=== PATIENT | male | born 1960 | race Caucasian/White ===

== ENCOUNTER → 2017-08-20 | Outpatient (CLI) | payer OTHER ==
[~2017-08-20] MED LIST: ACETAMINOPHEN-1 EAC2 PO; ALEVE220 MG PO; AMBIEN 10 MG TA10 MG PO; AMBIEN 5 MG TABL5 M1 PO; AMITIZA 24 MCG24 MC1 PO; CREAM; DAZIDOX10 MG PO; DESIPRAMINE 2525 M1 PO; EPCLUSA 400 MG1 EACH PO; LIORESAL 10 MG10 MG PO; METAMUCIL PAC1 UDPK1 PO; METAMUCIL197.2 GM PO; METHADONE HCL 110 MG PO; METHOCARBAMOL500 M1 PO; MIRALAX17 GM PO; MOVANTIK25 MG PO; NEURONTIN 300M300 M2 PO; OPANA ER20 M1 PO; OPANA ER30 M1 PO; OXYCODONE HCL 55 MG PO; OXYCODONE HCL10 MG PO; OXYCODONE HCL5 M1 PO; OXYCODONE PO; OXYCONTIN CR 2020 MG PO; OXYCONTIN10 M1 PO; OXYCONTIN40 MG PO; PAMELOR25 MG PO; PERCOCET 10-321 EACH PO; ROXICODONE5 MG PO; SENOKOT-S1 TA1 PO; TYLENOL325 MG PO
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
== END ==
LOC: M.PC 03:37
DX: M54.12 Radiculopathy, cervical region (principal); G62.9 Polyneuropathy, unspecified; G89.29 Other chronic pain

== ENCOUNTER → 2017-10-15 | Outpatient (CLI) | payer OTHER ==
--- NOTE | 2017-10-27 08:16 | PAINCON ---
[facility] [address] [place] [address] PAIN MANAGEMENT CONSULTATION Name: MELA POOL Room: [facility] ZENIA Greene#: [id number] Admission: 10/15/17 Attend Phys: Nina Alford MD Discharge: Date of : 56 Report #: [id number] THIS REPORT FOR: //name// CC: Nina Hernandez DATE OF SERVICE: 10/15/2017 FOLLOWUP COMPLAINT: Here for medications. Things are going reasonably well. I has had some worsening pain, because of machines have broke-down at work and I had to work on them. FOLLOWUP HISTORY: The patient is a 57-year-old gentleman, who has been followed in the pain clinic. As you recall, he suffers from cervical radiculopathy. He has had anterior cervical fusion in the past. He continues to stay gainfully employed. Finds his medications are quite helpful. Does not take the methocarbamol as often as 3 times a day. He does take it periodically. Notes that it sometimes makes him a little bit sleepy. Feels that the oxycodone is very helpful. Continues to take it as prescribed. He has had no complications from it. No problem with his GI tract. No problems with mentation. Keeps his medications in a guarded area. He feels that he is getting greater than 50% improvement with use of these medications. Rates his pain as a 4.5/10 today. He has been reviewed for hepatitis C treatment. He is being interviewed with the possibility of using ____ need to help with the hepatitis C infection. Overall, there seems to be a number of other agents. He is being informed on what his options are. He continues to have pain in the neck. 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 When the machine breaks down, he is required to do quite a bit of contortion of his neck in order to fix these. Given that now has someone to help him. He feels that his pain level should be stabilized or improved. ALLERGIES: No known drug allergies. CURRENT MEDICATIONS: Continued to be Tylenol 325 q. 6 hours p.r.n., methocarbamol 500 mg p.o. p.r.n., MiraLax 17 grams at bedtime, Ambien 5 mg at bedtime, oxycodone IR 10 mg q. 6 hours p.r.n. pain. SOCIAL HISTORY: The patient denies use of tobacco, alcohol or illicit drugs. PAIN ASSESSMENT REVIEW: 1. The patient is not being treated for osteoarthritis or rheumatoid arthritis. Height 5 feet 9 inches, weight 166 pounds, BMI is 24. 2. VITAL SIGNS: Blood pressure 144/77, pulse 72, respiratory rate 16, [place] [address] PAIN MANAGEMENT CONSULTATION Name: MELA POOL [id number] Admission: 10/15/17 Attend Phys: Nina Alford MD Discharge: Date of : 56 Report #: [id number] saturation 99%, temperature 97.9. Pain intensity 4.5/10. 3. Fall risk. The patient has not fallen in the last 3 months. 4. Blood thinner. The patient is not on a blood thinner. 5. History of hypertension. The patient is not being treated for hypertension. 6. Opioid therapy greater than 6 weeks. The patient is on an opioid contract with the pain clinic and receives his medications only from this source. 7. Risk assessment tool. 8. Functional assessment total. 9. Recreational drug use. The patient denies recreational drug use. 10. Tobacco: The patient denies use of tobacco. 11. Alcohol: The patient denies use of alcoholic beverages. PHYSICAL EXAMINATION: GENERAL: The patient is a well-developed, pleasant 57-year-old gentleman. Appears his stated age. Speech is normal. He is alert and oriented x 3. Mood and affect are appropriate. HEENT: Head is atraumatic, normocephalic without trauma. Extraocular eye muscles intact. Sclerae normal. Hearing within normal limits. Mucous membranes moist. NECK: Without adenopathy, well-healed scar in the neck area. Some limited range of motion secondary to previous surgery. CHEST: Clear to auscultation without rhonchi or wheezing. ABDOMEN: Nontender. EXTREMITIES: Upper extremities within normal limits with some numbness and tingling in his hands and forearms bilaterally. 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 Lower extremity, muscle strength judged to be 5/5, muscle group within normal limits without complain of neurologic changes. MUSCULOSKELETAL: Without significant kyphosis, scoliosis or lordosis. IMPRESSION: 1. History of cervical radiculopathy. 2. Failed cervical spine surgery. 3. Peripheral neuropathy. 4. Chronic intractable pain. 5. Complex medical regimen for neck and shoulder pain. RECOMMENDATIONS: We discussed treatment options with the patient. We will continue with his current opioid medications. He feels that his medications are helpful. He has not had any problems with them. He is getting more help at work. Hopefully, when the machines breakdown, his coworker will be able to do a ____ and share the work and decrease his pain and stress on his neck. He will continue with his current medications. He will call us if he has any problems with his medications. We would like to thank you for letting us participate in his care. A script for his medications of OxyIR 10 mg 1 p.o. q. 4 [place] [address] PAIN MANAGEMENT CONSULTATION Name: MELA POOL Room: [facility]#: [id number] Admission: 10/15/17 Attend Phys: Nina Alford MD Discharge: Date of : 56 Report #: [id number] has been written for 2 months. He also will take the methocarbamol p.r.n. for muscle spasms. <ELECTRONICALLY SIGNED> By: Nina Alford MD 10/27/17 0816 [id number] 2027N. Bishnu Alford MD /nt
== END ==
LOC: M.PC 01:26
DX: G89.4 Chronic pain syndrome (principal); G62.9 Polyneuropathy, unspecified; M54.12 Radiculopathy, cervical region

== ENCOUNTER → 2017-12-10 | Outpatient (CLI) | payer OTHER ==
--- NOTE | 2017-12-16 14:14 | PAINCON ---
[facility] [address] [place] [address] PAIN MANAGEMENT CONSULTATION Name: MELA POOL Room: [facility] ZENIA SealsDeidre#: [id number] Admission: 12/10/17 Attend Phys: Nina Alford MD Discharge: Date of : 56 Report #: [id number] THIS REPORT FOR: //name// CC: Nina Hernandez DATE OF SERVICE: 12/10/2017 FOLLOWUP COMPLAINT: Here for medications. I have been talked to my doctor about hepatitis medication. FOLLOWUP HISTORY: The patient is a 57-year-old gentleman who has been followed in the pain clinic for quite some time. He has pain and discomfort in his neck. Most of the pain and discomfort he is experiencing at this juncture involves his left neck in the area of scapula. He has had surgery as you recall. Finds that his medications are helpful. Feels that the oxycodone continues to be helpful. He remains gainfully employed. Has had no complication from the medication. Does not feel that the medication cause any problems with his sensorium. He is thinking clearly. Keeps his medications in a guarded area. Denies any bowel problems with his bowel or bladder function. The patient rates his pain as about a 4 most of the time. He is aware that he probably will continue to have some pain. Finds that the medication is reasonably helpful. He is aware that opioid medications can cause addiction. He is also aware that prolonged use of medications can lead to decrease efficacy because of tolerance. He would like to have his medications renewed. ALLERGIES: No known drug allergies. CURRENT MEDICATIONS: Tylenol 325 every 6 hours p.r.n., methocarbamol 500 mg t.i.d., MiraLax 17 grams, Ambien 5 mg at bedtime, oxycodone 10 every 4 hours p.r.n. pain. PAIN CLINIC ASSESSMENT: 1. The patient is not being treated for osteoarthritis, but does have some arthritic changes in his neck. 2. Height 5 feet 9 inches, weight 167 pounds, BMI is 24. 3. Vital signs: Blood pressure 151/78, heart rate 75, respiratory rate 16, room air saturation 98, temperature 98.2. 4. Pain intensity pain rated as a 4/10. 5. Fall history, the patient has not fallen in the last 2 months. 6. Blood thinner. The patient is not on a blood thinning medication. 7. History of hypertension. The patient is not being treated for hypertension. 8. Opioid therapy greater than 6 weeks. The patient is on an opioid contract and get his medications from 1 source. 9. Risk assessment tool. 10. [place] [address] PAIN MANAGEMENT CONSULTATION Name: MELA POOL [facility] [id number] Admission: 12/10/17 Attend Phys: Nina Alford MD Discharge: Date of : 56 Report #: [id number] 11. Recreational drug use. The patient denies use of recreational drugs. 12. Tobacco: The patient denies use of tobacco. 13. Alcohol: The patient denies use of alcoholic beverages. PHYSICAL EXAMINATION: GENERAL: The patient is a well-developed white male, appears his stated age. He is alert and oriented x 3. Speech is fluent. Mood is appropriate. HEAD, EYES, EARS, NOSE, AND THROAT: Normocephalic, atraumatic. Extraocular eye muscles intact. Sclerae nonicteric. Hearing is within normal limits. Mucous membranes are moist. NECK: Without adenopathy, has a well-healed scar in the anterior portion of his neck. Limited range of motion secondary to the surgery. Notes increased pain in the left shoulder near upper portion of the scapula and in the area of the latissimus dorsi on the left. HEART: Regular rate. S1, S2. LUNGS: Clear to auscultation without rhonchi or wheezing. ABDOMEN: Nontender. EXTREMITIES: Upper extremity muscle strength is judged to be 5/5 for the major muscle groups. Does occasionally note some numbness and tingling in his hands and forearms bilaterally. Lower extremity muscle strength is judged to be 5/5. MUSCULOSKELETAL: Without significant scoliosis, kyphosis or lordosis. IMPRESSION: 1. History of cervical radiculopathy. 2. Failed cervical spine surgery. 3. Peripheral neuropathy. 4. Chronic intractable pain. 5. Complex medical regimen for pain in the neck and shoulder using opioid medications. 6. Hepatitis-C. The patient is being evaluated for treatment. RECOMMENDATIONS: We discussed treatment options with the patient. We will continue with his opioid medications. He has been taking his medication as prescribed. We have had no problems. We will provide him with opioid prescriptions for 3 months. He will call us if he has any problems with his medications. We hope he continues to improve. Hopefully, the work that he does at his job continue to be less taxing on his neck. He will call us if he has any problems. We would like to thank you for letting us to participate in his care. A script for oxycodone 10 one p.o. every 4 hours p.r.n. for 3 months has been provided. The patient has also be given a script for methocarbamol 500 mg p.r.n. He will call us if he has any problems with his medications. Hopefully, he will be able to get into the program and have a treatment for his hepatitis. <ELECTRONICALLY SIGNED> By: Nina Alford MD 12/16/17 1414 0840 0957N. Bishnu Alford MD /PMT
== END ==
LOC: M.PC 02:16
DX: M54.12 Radiculopathy, cervical region (principal); G89.4 Chronic pain syndrome; G62.9 Polyneuropathy, unspecified; B19.20 Unspecified viral hepatitis C without hepatic coma; Z79.899 Other long term (current) drug therapy

== ENCOUNTER → 2018-03-04 | Outpatient (CLI) | payer OTHER ==
--- NOTE | 2018-03-12 17:38 | PAINCON ---
[facility] [address] [place] [address] PAIN MANAGEMENT CONSULTATION Name: MELA POOL Room: [facility] ZENIA SealsDeidre#: [id number] Admission: 03/04/18 Attend Phys: Nina Alford MD Discharge: Date of : 56 Report #: [id number] THIS REPORT FOR: //name// CC: Nina Hernandez DATE OF SERVICE: 03/04/2018 FOLLOWUP COMPLAINT: Here for medication renewal, things are going reasonably well whether it is kind of bad and would made the pain worse. FOLLOWUP HISTORY: The patient is a 57-year-old gentleman who has been followed in the pain clinic because of cervical radiculopathy. As you recall, he has had surgery in his neck. He continues to have some pain and discomfort depends on which side, " depends on which side it falls on." Has pain in the left shoulder today. He does have some occasions when it is more problematic on the right. Feels that the weather has made him feel "lousy." Rates his pain as a 6 today. It can vary between 4-5. Continues to use medications as prescribed. He feels that they are continued to be helpful and able him to be gainfully employed. Denies any side effects regarding bowel or bladder. Denies any problems with mentation. Keeps his medications in a guarded area. He is aware of the problems with opioids and the new CDC policies regarding opioid use. He would like to have his medications continued. ALLERGIES: No known drug allergies. MEDICATIONS: Tylenol 650 mg q. 6 hours p.r.n., methocarbamol 500 mg t.i.d., MiraLax 17 mg, Ambien 5 mg at bedtime, oxycodone 10 mg q.4 hours p.r.n., andEpclusa oral daily PAIN CLINIC ASSESSMENT: 1. The patient is not being treated for osteoarthritis or rheumatoid arthritis, but this have some arthritic change in his neck secondary to surgery. 2. Height 5 feet 9 inches, weight 170 pounds, BMI is 24. 3. Vital signs: Blood pressure 140/80, heart rate 62, respiratory rate 16, room air saturation 97%, temperature 98.2. 4. Pain score 6/10. 5. Fall risk. The patient has not fallen in the last 3 months. 6. Blood thinner. The patient is not on a blood thinning medication. 7. Hypertension. The patient has not been treated for hypertension. 8. Opioid therapy greater than 6 weeks. The patient [facility]. 9. Risk assessment tool. 10. Functional assessment tool. 11. Recreational drug use. The patient denies use of recreational drugs. 12. Tobacco: The [place] [address] PAIN MANAGEMENT CONSULTATION Name: MELA POOL Room: [facility]#: [id number] Admission: 03/04/18 Attend Phys: Nina Alford MD Discharge: Date of : 56 Report #: [id number] 13. Alcohol: The patient denies use of alcohol. PHYSICAL EXAMINATION: GENERAL: The patient is a well-developed, well-nourished white male. Appears his stated age. He is alert and oriented x 3. Affect is appropriate. Speech is fluent. Mood is good. HEENT: Normocephalic, atraumatic. Extraocular eye muscles intact. Sclerae nonicteric. Hearing is within normal limits. Mucous membranes moist. NECK: Without adenopathy. The patient has well-healed scar in the anterior portion of his neck. Has some limitation in movement secondary to surgery. Note some increased pain in the left shoulder today as well as sometimes can be worse on the right. HEART: Regular rate, normal S1, S2. LUNGS: Clear to auscultation without rhonchi or rales. ABDOMEN: Nontender. EXTREMITIES: Upper extremity muscle strength is judged to be 5/5 for the major muscle groups. The patient does have some numbness and tingling down into his hands and forearms bilaterally, left side more problematic today than right lower extremity muscle strength is judged to be 5/5 without sensory changes. The patient does have some significant patient without significant scoliosis, kyphosis or lordosis. IMPRESSION: 1. History of cervical radiculopathy. 2. Failed cervical spine surgery. 3. Peripheral neuropathy. 4. Chronic intractable pain. 5. Complex medical regimen for neck pain, shoulder is using opioid medication. 6. Hepatitis C. The patient is being evaluated for treatment. RECOMMENDATIONS: We discussed treatment options with the patient. We will continue with his current medical regimen. He feels that the medications are helpful. He has had no problems with them. Continues to follow the direction of the pain clinic. The patient will follow up in the near future as needed. A script for his medications of oxycodone for the next 3 months has been provided. The patient will also continue with, methocarbamol 500 mg. We would like to thank you for letting us participate in his care. We hope he continues to improve. <ELECTRONICALLY SIGNED> By: Nina Alford MD 03/12/18 1738 0841 1051N. Bishnu Alford MD /felecia
== END ==
LOC: M.PC 04:54
DX: M54.12 Radiculopathy, cervical region (principal); G89.4 Chronic pain syndrome; G62.9 Polyneuropathy, unspecified; B19.20 Unspecified viral hepatitis C without hepatic coma; Z79.899 Other long term (current) drug therapy

== ENCOUNTER → 2018-05-25 | Outpatient (CLI) | payer OTHER ==
--- NOTE | ~2018-05-25 | PAINCON ---
[facility] [address] [place] [address] PAIN MANAGEMENT CONSULTATION Name: MELA POOL Room: [facility] BozenaDeidre#: [id number] Admission: 05/25/18 Attend Phys: Nina Alford MD Discharge: Date of : 56 Report #: [id number] THIS REPORT FOR: //name// CC: Nina Hernandez DATE OF SERVICE: 05/25/2018 CHIEF COMPLAINT: Here for medications. HISTORY: The patient is a 57-year-old gentleman who has been followed in the pain clinic because of cervical radiculopathy. He returns today for renewal of his medications. He rates his pain as a 5/10. The weather has changed. It is about 24 degrees outside this morning. Notes that the pain has increased somewhat. It involves his left shoulder and also his right side. Overall, he is feeling reasonably well. Denies any new trauma. Feels that his medications are helpful. Today is right before Thanksgiving, he has a lot of activities that he needs to get done. The stress of this makes the pain more problematic. Denies any problems with mentation with use of his medications. Keeps them in a guarded area. Would like to have them renewed. ALLERGIES: No known drug allergies. CURRENT MEDICATIONS: Tylenol 600 mg q. 6 hours p.r.n., methocarbamol 500 mg t.i.d., MiraLax 17 mg, Ambien 5 mg at bedtime, oxycodone 10 mg q. 4 hours p.r.n., and Epclusa oral daily. PAIN CLINIC ASSESSMENT AND PQRS: 1. The patient is not being treated for osteoarthritis or rheumatoid arthritis. The patient does have some arthritic changes secondary to surgery in his neck. 2. Height 5 feet 9 inches, weight 165 pounds, BMI is 24.5. 3. Vital signs; blood pressure 143/87, heart rate 89, respiratory rate 16, room air saturation 98%, and temperature 98.4. 4. Pain intensity 11/12. 5. Fall history: The patient has not fallen since we saw him last. 6. Blood thinner. The patient is not on a blood thinning medication. 7. Hypertension. The patient is not being treated for hypertension. 8. Opioid therapy greater than 6 weeks. The patient has received medication from [facility], the pain clinic. 9. Risk assessment tool, low for opioid use. 10. Functional assessment tool. 11. Recreational drug use. The patient denies use of recreational drugs. 12. Tobacco: The patient denies use of tobacco. 13. Alcohol: The patient denies use of alcoholic beverages. PHYSICAL EXAMINATION: [place] [address] PAIN MANAGEMENT CONSULTATION Name: MELA POOL Room: [facility]#: [id number] Admission: 05/25/18 Attend Phys: Nina Alford MD Discharge: Date of : 56 Report #: [id number] GENERAL: The patient is a well-developed, well-nourished white male. He appears his stated age. He is alert and oriented x 3. His affect is appropriate. Speech is fluent. Mood is good. HEENT: Normocephalic. Extraocular eye muscles intact. Sclerae nonicteric. Hearing is within normal limits. Mucous membranes are moist. NECK: Without adenopathy. The patient has a well-healed scar at the anterior portion of his neck. Has some irritation ____ secondary to surgery. HEART: Regular rate. S1, S2. LUNGS: Clear to auscultation without rhonchi or rales. ABDOMEN: Nontender. Bowel sounds present. EXTREMITIES: Upper extremity muscle strength is judged to be 5/5 for the major muscle groups. The patient has some numbness and tingling down into his hand and forearm. Left side in the past has been more problematic than right. Lower extremity 5/5 without sensory changes. The patient without scoliosis, kyphosis, or lordosis. IMPRESSION: 1. History of cervical radiculopathy, status post cervical fusion. 2. Failed cervical spine surgery. 3. Peripheral neuropathy. 4. Chronic intractable pain. 5. Chronic medical regimen for neck pain and shoulders. 6. Hepatitis C. The patient is being evaluated for treatment. RECOMMENDATIONS: We discussed treatment options with the patient. At this juncture, he will continue with his current medication of oxycodone 10 mg one p.o. q. 4 hours p.r.n., ____ tablets per day. He will also continue with methocarbamol 500 mg 1 p.o. t.i.d. to help with pain control and spasms. We would like to thank you for letting us participate in his care. We hope he continues to improve. By: [id number]. Bishnu Alford MD /felecia
== END ==
LOC: M.PC 04:49
DX: M54.12 Radiculopathy, cervical region (principal); M43.22 Fusion of spine, cervical region; G62.9 Polyneuropathy, unspecified; G89.4 Chronic pain syndrome; B19.20 Unspecified viral hepatitis C without hepatic coma

== ENCOUNTER → 2018-08-17 | Outpatient (CLI) | payer OTHER ==
--- NOTE | 2018-08-20 13:53 | PAINCON ---
[facility] [address] [place] [address] PAIN MANAGEMENT CONSULTATION Name: MELA POOL Room: [facility] BozenaDeidre#: [id number] Admission: 08/17/18 Attend Phys: Nina Alford MD Discharge: Date of : 56 Report #: [id number] THIS REPORT FOR: //name// CC: Nina Hernandez DATE OF SERVICE: 08/17/2018 CHIEF COMPLAINT: Here for medications. HISTORY: The patient is a 58-year-old gentleman who has been followed in the pain clinic because of chronic cervical radiculopathy. He returns today for his medications. He notes that the pain has increased because of the cold weather. He feels that his job has been more problematic. 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 He has been seen by a chiropractor. His chiropractor has been out of town. When he gets more pain and is unable to visit a chiropractor, he notes some increased pain and discomfort. He is still having pain at the base of his neck. Also, has pain in the left scapular area. Rates his pain as a 4/10. ALLERGIES: No known drug allergies. MEDICATIONS: Tylenol 600 mg every 6 hours, methocarbamol 500 mg t.i.d., MiraLax 17 g, Ambien 5 mg at bedtime, oxycodone 10 mg every 4-6 hours, Epclusa oral daily. PAIN CLINIC ASSESSMENT/PQRS: 1. The patient is not being treated for osteoarthritis or rheumatoid arthritis. Does have some arthritic changes secondary to surgery in his neck. 2. Height 5 feet 9 inches, weight 164 pounds, BMI is 24.4. 3. Vital signs: Blood pressure 133/97, heart rate 81, respiratory rate 16, room air saturation 98%, temperature 98.3. 4. Pain intensity 5/10. 5. Fall history: The patient has not fallen in the last 3 months. 6. Blood thinner. The patient is not on a blood thinning medication. 7. Hypertension. The patient is not being treated for hypertension. 8. Opioids greater than 6 weeks. The patient is on opioid medication gets his pain medications from one [facility], the pain clinic. 9. Risk assessment tool, low for opioid use. 10. Functional assessment tool. 11. Recreational drug use. The patient denies use of recreational drugs. 12. Tobacco: The patient denies use of tobacco. 13. Alcohol. The patient denies use of alcoholic beverages. PHYSICAL EXAMINATION: [facility] [address] [place] [address] PAIN MANAGEMENT CONSULTATION Name: MELA POOL Room: [facility]#: [id number] Admission: 08/17/18 Attend Phys: Nina Alford MD Discharge: Date of : 56 Report #: [id number] GENERAL: The patient is a well-developed, well-nourished white male. Appears his stated age. He is alert and oriented x 3. His affect is appropriate. Speech is fluent. Mood is good. HEENT: Normocephalic, atraumatic. Extraocular muscles intact. Sclerae nonicteric. Mucous membranes are moist. NECK: Without adenopathy. The patient has some pain and discomfort in the left side and has a well-healed scar on the anterior portion of his neck. Some irritability in his left scapular area. HEART: Regular rate. S1, S2. LUNGS: Clear to auscultation without rhonchi or rales. ABDOMEN: Nontender. Bowel sounds present. EXTREMITIES: Upper extremity muscle straight judged to be 5/5 for the major muscle groups in the upper extremity. Lower extremity muscle strength 5/5. The patient without scoliosis, kyphosis or lordosis. IMPRESSION: 1. History of cervical radiculopathy status post cervical fusion. 2. Failed cervical fusion in the spine area. 3. Peripheral neuropathy. 4. Chronic intractable pain. 5. Chronic medical regimen for pain control. 6. Hepatitis C. He has been evaluated for treatment. RECOMMENDATIONS: We discussed treatment options with the patient. At this juncture, he is at a morphine equivalent of 75 mg morphine. He was wondering whether or not we could increase his medications. We had a long talk regarding the problems with opioid medications. Possibility of addiction as well as tolerance can develop. I explained to the patient that a drug holiday might be the best option at this juncture. He feels that he is under quite a bit of stress and strain at work. He would like to continue with his current medications for now, may consider increasing the medication dose in the near future. We would like to thank you for letting us participate in his care. We hope he continues to improve. <ELECTRONICALLY SIGNED> By: Nina Alford MD 08/20/18 [id number] [id number]. Bishnu Alford MD /nt
== END ==
LOC: M.PC 08:00
DX: M54.12 Radiculopathy, cervical region (principal); M43.22 Fusion of spine, cervical region; G89.4 Chronic pain syndrome; G62.9 Polyneuropathy, unspecified; B19.20 Unspecified viral hepatitis C without hepatic coma; Z79.899 Other long term (current) drug therapy

== ENCOUNTER → 2018-11-09 | Outpatient (CLI) | payer OTHER ==
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
== END ==
LOC: M.PC 04:35
DX: M43.22 Fusion of spine, cervical region (principal); G89.4 Chronic pain syndrome; G62.9 Polyneuropathy, unspecified; B19.20 Unspecified viral hepatitis C without hepatic coma; Z79.899 Other long term (current) drug therapy; Z87.19 Personal history of other diseases of the digestive system

== ENCOUNTER → 2019-02-01 | Outpatient (CLI) | payer OTHER ==
[~2019-02-01] MED LIST changes: +AMITRIPTYLINE H25 M2 PO
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
== END ==
LOC: M.PC 05:02
DX: Z76.0 Encounter for issue of repeat prescription (principal); G62.9 Polyneuropathy, unspecified; G89.4 Chronic pain syndrome; B19.20 Unspecified viral hepatitis C without hepatic coma; Z79.899 Other long term (current) drug therapy; Z79.891 Long term (current) use of opiate analgesic; Z98.1 Arthrodesis status

== ENCOUNTER → 2019-04-26 | Outpatient (CLI) | payer OTHER ==
[~2019-04-26] MED LIST changes: +METHOCARBAMOL500 M2 PO
--- NOTE | 2019-04-27 09:09 | PAINCON ---
[facility] [address] [place] [address] PAIN MANAGEMENT CONSULTATION Name: MELA POOL [facility] [id number] Admission: 04/26/19 Attend Phys: Nina Alford MD Discharge: Date of : 56 Report #: [id number] THIS REPORT FOR: //name// CC: Nina Hernandez DATE OF SERVICE: 04/26/2019 CHIEF COMPLAINT: Neck pain. HISTORY: The patient is a 58-year-old gentleman who has been followed in the Pain Clinic. He has a history of cervical pain and discomfort. He has pain, which involves his neck and shoulders. He has returned today for renewal of his medications. Still has pain and discomfort in the neck and shoulder area. Feels that the amitriptyline medication has been helpful, but 50 mg has made him to somewhat sleepy. He is taking less at this juncture. He has used nortriptyline in the past. We explained to the patient that amitriptyline is metabolized by the body to nortriptyline. He continues to have some pain and discomfort. He goes to the chiropractor every two weeks. Rates his pain as about 50% improved with his current medications of OxyIR 10 mg and methocarbamol. He notes cold weather and activity can increase his discomfort. Finds that medications as well as heat are beneficial. ALLERGIES: No known drug allergies. CURRENT MEDICATIONS: Methocarbamol 500 mg t.i.d., MiraLax 17 g, Ambien 5 mg at bedtime, oxycodone 10 mg q.4h., Epclusa oral daily, Tylenol 600 mg p.r.n. PAIN CLINIC ASSESSMENT AND PQRS: 1. The patient is not being treated for osteoarthritis or rheumatoid arthritis. 2. Height 5 feet 9 inches, weight 159 pounds, BMI is 23. 3. Vital Signs: Blood pressure 150/76, heart rate 73, respiratory rate 16, room air saturation 99%, temperature 98.2. 4. Pain score 3.5/10 5. Fall history: The patient has not fallen in the last 3 months. 6. Blood thinner. The patient is not on a blood thinning medication. 7. Hypertension. The patient is not being treated for hypertension. 8. Opioids: Greater than 6 weeks, the patient received medication from [facility], pain clinic. 9. Risk assessment tool, low for opioid use. 10. Recreational drug use. The patient denied. 11. Functional assessment tool, low. 12. Tobacco: The patient denies use of tobacco. 13. Alcohol: The patient denies [place] [address] PAIN MANAGEMENT CONSULTATION Name: MELA POOL Room: [facility]#: [id number] Admission: 04/26/19 Attend Phys: Nina Alford MD Discharge: Date of : 56 Report #: [id number] PHYSICAL EXAMINATION: GENERAL: The patient is a well-developed, well-nourished white male. Appears his stated age. He is alert and oriented x 3. His affect is appropriate. His speech is fluent. HEENT: Normocephalic, atraumatic. Extraocular eye muscles intact. Sclerae are nonicteric. Mucous membranes are moist. The patient is wearing glasses. NECK: Without adenopathy or JVD. LUNGS: Clear to auscultation without rhonchi. ABDOMEN: Nontender, well-healed scars status post laparoscopic surgeries. EXTREMITIES: Upper extremity muscle strength judged to be 5/5 for the major muscle groups in the upper extremity. The patient has lower extremity muscle strength judged to be 5/5 for the major muscle groups in the lower extremity. The patient is without significant scoliosis, kyphosis or lordosis. IMPRESSION: 1. History of cervical radiculopathy status post cervical fusion. 2. Status post bowel obstruction surgery in the past for lysis of adhesions with improved bowel function. 3. Failed cervical fusion of the spine. 4. Peripheral neuropathy. 5. Chronic intractable pain. 6. Complex medical regimen using opioid medications to help control pain. 7. Hepatitis C. The patient has been evaluated for treatment. RECOMMENDATIONS: We discussed treatment options with the patient. Risks and benefits of an opioid regimen have been discussed, possibility of less effectiveness secondary to development of tolerance. The patient feels the medication is helpful. He is taking it as prescribed. He has some problems with hepatitis. We would recommend that the patient be cognizant of the use of Tylenol given that he is receiving approximately 1800 mg of Tylenol daily. The patient finds that the methocarbamol continues to be helpful with muscle spasms. The patient will take amitriptyline p.r.n. He will take 25 mg at bedtime. Hopefully, this will minimize problems with somnolence. A script for his medications has been written. He will continue with methocarbamol 500 mg 1 p.o. t.i.d., OxyIR 10 mg 1 p.o. q.4h. The patient dispensed 150 tablets per month. He will follow up in 3 months. He will call us sooner if he has any concerns. We would like to thank you for letting us participate in his care. We will continue with his chronic pain control using the complex medical management with opioids. <ELECTRONICALLY SIGNED> By: Nina Alford MD 04/27/19908 0841 8N. Bishnu Alford MD /nt
== END ==
LOC: M.PC 05:23
DX: M54.12 Radiculopathy, cervical region (principal); G89.4 Chronic pain syndrome; G62.9 Polyneuropathy, unspecified; K75.9 Inflammatory liver disease, unspecified; Z79.891 Long term (current) use of opiate analgesic

== ENCOUNTER → 2019-07-19 | Outpatient (CLI) | payer OTHER ==
--- NOTE | ~2019-07-19 | PAINCON ---
[address] [address] PAIN MANAGEMENT CONSULTATION Name: MELA POOL Room: [facility] ZENIA Greene#: [id number] Admission: 07/19/19 Attend Phys: Nina Alford MD Discharge: Date of : 56 Report #: [id number] THIS REPORT FOR: //name// CC: Soraya Alford DATE OF SERVICE: 07/19/2019 CHIEF COMPLAINT: Neck pain continues. It is down in the back of my goal area. HISTORY: The patient is a 59-year-old gentleman who has been followed in the pain clinic. As you recall, he has a history of cervical pain and discomfort. He has had surgery from C3 in the cervical area to T1 the thoracic area. Still has some pain in the base of his skull. Notes some myofascial discomfort as well. Rates his pain today as a 4/10. Denies any new trauma. Overall, he feels that his medications continue to be helpful. He has returned today with the hope of renewing his medications. He has pain that can radiate down into neck area. Feels that the amitriptyline medication is helpful. He feels that he is about 60% improved with his medication use at this point. Takes amitriptyline, mostly on the weekends. 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 ALLERGIES: No known drug allergies. CURRENT MEDICATIONS: Methocarbamol 500 mg t.i.d., MiraLax 17 grams, Ambien 5 mg at bedtime, oxycodone 10 mg every 4-6 hours p.r.n., Epclusa oral daily, Tylenol 600 mg p.r.n. PAIN CLINIC ASSESSMENT/PQRS: 1. The patient is not being treated for osteoarthritis or rheumatoid arthritis. 2. Height 5 feet 9 inches, weight 160 pounds, BMI is 24.4. 3. Vital Signs: Blood pressure 144/88, heart rate 80, respiratory rate 16, room air saturation 98.9%, temperature 98.2. 4. Pain score is 4/10. 5. Fall history: The patient has not fallen in the last 3 months. 6. Blood thinner. The patient is not on a blood thinning medication. 7. Hypertension. The patient is not being treated for hypertension. 8. Opioids greater than 6 weeks. The patient received medication from one source the pain clinic. 9. Risk assessment tool, low for opioid use. 10. Recreational drug use. The patient denies use of recreational drugs. 11. Tobacco: The patient denies use of tobacco. 12. Alcohol. The patient denies use of alcoholic beverages. PHYSICAL EXAMINATION: GENERAL: The patient is a well-developed, well-nour[place] [address] PAIN MANAGEMENT CONSULTATION Name: MELA POOL Master Room: [facility]#: [id number] Admission: 07/19/19 Attend Phys: Nina Alford MD Discharge: Date of : 56 Report #: [id number] his stated age. He is alert and oriented x 3. His affect is appropriate. Speech is fluent. HEAD, EYES, EARS, NOSE, AND THROAT: Normocephalic, atraumatic. Extraocular eye muscles intact. Sclerae nonicteric. Mucous membranes are moist. NECK: Without adenopathy. He does have some pain and discomfort in the base of his skull. Has some pain that radiates down to his shoulders. LUNGS: Clear, without rhonchi. ABDOMEN: Nontender, well-healed scar laparoscopic surgery. EXTREMITIES: Upper extremity muscle strength judged to be 5-/5 for the major muscle groups in the upper extremity. The patient has lower extremity muscle strength judged to be 5/5 for the major muscle groups in the lower extremity. The patient without significant scoliosis, kyphosis or lordosis. IMPRESSION: 1. History of cervical radiculopathy, status post cervical fusion C3 through T1. 2. Status post bowel obstruction surgery in the past with lysis of adhesions. 3. Failed cervical fusion of the spine. 4. Peripheral neuropathy. 5. Chronic intractable pain. 6. Complex medical management of pain using opioid medications. 7. Hepatitis C. The patient has been evaluated for treatment. RECOMMENDATIONS: We discussed treatment options with the patient. Risks and benefits of opioid medications again have been reviewed. The patient is aware that the medications have limited ability to control pain. They can become less effective as time goes on. He feels the medication is helpful. He is able to engage in activities of daily living. He find much more difficult without their use. He does not show any signs addicted. He has taken medication as prescribed. Does find that the amitriptyline medication can be helpful. Generally takes it in the weekend. He would like to continue with his medications. A script for amitriptyline 25 mg 1 p.o. at bedtime has been provided. The patient will also continue with the methocarbamol 500 mg 1 p.o. t.i.d. He will continue with OxyIR 10 mg 1 p.o. every 4 hours total 150 tablets have been provided for the next 2 months. By: [id number]. MD VERONICA Richter
== END ==
LOC: M.PC 07:42
DX: M54.12 Radiculopathy, cervical region (principal); G62.9 Polyneuropathy, unspecified; G89.4 Chronic pain syndrome; M43.22 Fusion of spine, cervical region; B19.20 Unspecified viral hepatitis C without hepatic coma; Z79.891 Long term (current) use of opiate analgesic

== ENCOUNTER → 2019-10-11 | Outpatient (CLI) | payer OTHER ==
[~2019-10-11] MED LIST changes: +AMITRIPTYLINE H75 M1 PO
--- NOTE | 2019-10-12 08:28 | PAINCON ---
[address] [address] PAIN MANAGEMENT CONSULTATION Name: CORINEMELA D Room: [facility] ZENIA SealsCaraEvaristoCara#: [id number] Admission: 10/11/19 Attend Phys: Nina Alford MD Discharge: Date of : 56 Report #: [id number] THIS REPORT FOR: //name// cc: Michael Hernandez Robert J. DO ~ THIS REPORT FOR: //name// CC: Nina Hernandez DATE OF SERVICE: 10/11/2019 CHIEF COMPLAINT: Shoulder pain. HISTORY: The patient is a 59-year-old gentleman who has been followed in the pain clinic because of chronic pain associated with neck discomfort. The patient has had surgery from C3 in the cervical area to T1 in the thoracic area. He does continue to have some pain and discomfort in the skull area. He continues to work. As a result of the COVID-19 problem they have decreased the number of workers. He has had more work to do on his job. He has noted some increased pain as a result of that increased activity. He feels overall that things are going reasonably well. He rates his pain as a 3/10. He feels that his pain is about 50% improved with his current medications. He has returned today with the hopes of renewing his medications. He continues to do stretching exercises. He has been following up with his chiropractor. He is stretching those, but it is out a bit more. He rates his pain as a 3/10 today. ALLERGIES: No known drug allergies. CURRENT MEDICATIONS: Methocarbamol 500 mg t.i.d., MiraLax 17 grams, Ambien 5 mg, oxycodone 10 IR 4-6 hours p.r.n., Epclusa oral daily, Tylenol 600 mg p.r.n. and amitriptyline 25 mg at bedtime, 2 tablets. PAIN CLINIC ASSESSMENT AND PQRS: 1. The patient is not being treated for osteoarthritis or rheumatoid arthritis. 2. Height 5 feet 9 inches, weight 160 pounds, BMI is 23. 3. Vital signs: Blood pressure 145/83, heart rate 68, respiratory rate 16, room air saturation 97%, and temperature 98.4. 4. Pain intensity 3/10. 5. Fall history: The patient has not fallen in the last 3 months. 6. Blood thinner. The patient is not on a blood thinning medication. 7. Hypertension. The patient is not being treated for hypertension. 8. Opioids greater than 6 weeks. The patient received medication from the pain clinic. 9. Risk assessment tool, [place] [address] PAIN MANAGEMENT CONSULTATION Name: MELA POOL Room: [facility]#: [id number] Admission: 10/11/19 Attend Phys: Nina Alford MD Discharge: Date of : 56 Report #: [id number] 10. Functional assessment tool has been reviewed. 11. Recreational drug use: The patient denies. 12. Tobacco: The patient denies. PHYSICAL EXAMINATION: GENERAL: The patient is a well-developed, well-nourished white male. Appears his stated age. He is alert and oriented x 3. His affect is appropriate. Speech is fluent. HEENT: Normocephalic, atraumatic. Extraocular eye muscles intact. MUSCULOSKELETAL: The patient does have some decreased range of motion. He notes some pain that radiates down into his shoulders. ABDOMEN: Nontender, well-healed scar from a laparoscopic procedure. EXTREMITIES: Upper extremity muscle strength judged to be 5-/5 for the major muscle groups in the upper extremity. Lower extremity muscle strength 5/5 for the major muscle groups in the lower extremity. The patient without significant scoliosis, kyphosis or lordosis. IMPRESSION: 1. Cervical radiculopathy, status post fusion C3 through T1. 2. Status post bowel obstruction surgery in the past with lysis of adhesions, stable. 3. Failed cervical fusion of the spine. 4. Peripheral neuropathy. 5. Chronic intractable pain. 6. Complex medical management of pain using opioid medications. 7. Hepatitis C. The patient has been evaluated for treatment. RECOMMENDATIONS: We discussed treatment options with the patient. At this juncture, we will continue with his medications. He feels that the opioid medications of OxyIR 10 mg one p.o. 4-6 hours, continues to be helpful. The patient also finds the use of methocarbamol somewhat helpful. He was using amitriptyline on a regular basis. He felt that it was less effective and has stopped, using it is often. We will have the patient try 75 mg of amitriptyline and see if this will provide more benefit. Risks and benefits of additional amitriptyline with possibility of increased sedation have been discussed. The patient will try the medication and note its efficacy. He will call us if he has any concerns. The patient is aware that the opioid medications can become less effective. He is aware that opioid medications have caused some patients to develop an addiction. He has not shown any signs of addiction. We would like to thank you for letting us participate in his care. We hope he continues to improve. <ELECTRONICALLY SIGNED> By: Nina Alford MD 10/12/19 0828 [id number]. Bishnu Alford MD /felecia
== END ==
LOC: M.PC 04:53
DX: M25.519 Pain in unspecified shoulder (principal); G62.9 Polyneuropathy, unspecified; G89.29 Other chronic pain; F11.20 Opioid dependence, uncomplicated; B19.20 Unspecified viral hepatitis C without hepatic coma

== ENCOUNTER → 2020-01-03 | Outpatient (CLI) | payer OTHER ==
--- NOTE | 2020-01-12 15:40 | PAINCON ---
[facility] [address] [place] [address] PAIN MANAGEMENT CONSULTATION Name: MELA POOL Room: [facility] BozenaDeidre#: [id number] Admission: 01/03/20 Attend Phys: Nina Alford MD Discharge: Date of : 56 Report #: [id number] THIS REPORT FOR: //name// cc: Michael Hernandez Robert J. DO ~ THIS REPORT FOR: //name// CC: Nina Hernandez DATE OF SERVICE: 01/03/2020 CHIEF COMPLAINT: "Things are going reasonably well. I have been off work for about 6 weeks." HISTORY: The patient is a 59-year-old gentleman who has been followed in the pain clinic because of chronic pain. As you recall, he has pain and discomfort in his neck. He has some pain and discomfort in the shoulders. He feels that his pain is still the same. It is somewhat of nagging and uncomfortable. He rates it as a 3/10. He has been off work for the last 6 weeks. This has given him some time to heal. He feels his medications are helpful. He has taken the oxycodone, amitriptyline and methocarbamol. He has had about 60% improvement in his pain with his current medication regimen. He notes cold and activity can exacerbate his discomfort. He does use his medications as well as heat to help improve things. ALLERGIES: No known drug allergies. CURRENT MEDICATIONS: Methocarbamol 500 mg t.i.d., MiraLax 17 grams, Ambien 5 mg, oxycodone 10 IR every 4 - 6 hours, Epclusa oral daily, Tylenol 600 mg p.r.n., amitriptyline 25 mg at bedtime 2 tablets. PAIN CLINIC ASSESSMENT AND PQRS: 1. The patient is not being treated for osteoarthritis or rheumatoid arthritis. 2. Height 5 feet 9 inches, weight 163 pounds, BMI is 23. 3. Vital Signs: Blood pressure 133/73, heart rate is 61, respiratory rate 16, room air saturation 98, temperature 98.3. 4. Oxygen saturation 98%. 5. Fall history: The patient has not fallen in the last 3 months. 6. Blood thinner. The patient is not on a blood thinning medication. 7. Hypertension. The patient is not being treated for hypertension. 8. Opioids greater than 6 weeks. The patient received medication from one source the pain clinic. 9. Risk assessment tool. 10. Functional assessment tool has been reviewed. 11. Recreational drug use: [place] [address] PAIN MANAGEMENT CONSULTATION Name: MELA POOL Room: [facility]#: [id number] Admission: 01/03/20 Attend Phys: Nina Alford MD Discharge: Date of : 56 Report #: [id number] 12. Tobacco: The patient denies. PHYSICAL EXAMINATION: GENERAL: The patient is a well-developed, well-nourished white male. Appears his stated age. He is alert and oriented x 3. His affect is appropriate. Speech is fluent. HEENT: Normocephalic, atraumatic. Extraocular eye muscles intact. MUSCULOSKELETAL: The patient does have some increased pain and decreased range of motion in his neck. He notes pain that radiates down into his shoulders. ABDOMEN: Nontender, well-healed scar from a laparoscopic procedure. EXTREMITIES: His upper extremity muscle strength judged to be 5-/5 for the major muscle groups in the upper extremity. Lower extremity muscle strength 5/5 for the major muscle groups in the lower extremities. The patient without significant scoliosis, kyphosis or lordosis. IMPRESSION: 1. Cervical radiculopathy with status post fusion C3 through T1. 2. Status post bowel obstruction surgery in the past with lysis of adhesions, stable. 3. Failed cervical fusion of the spine. 4. Peripheral neuropathy. 5. Chronic intractable pain. 6. Complex medical management of pain using opioids. 7. Hepatitis C. The patient has been evaluated for treatment. RECOMMENDATIONS: We discussed treatment options with the patient. At this juncture, he feels his medications are working reasonably well. We will continue with oxycodone 10 mg one p.o. every 4 - 6 hours p.r.n. He will also continue with amitriptyline 25 mg tablets 2 tablets at night total of 50 mg. He will use the methocarbamol to help with muscle relaxation 3 times daily. He will call us if he has any concerns. He does not have any problems with thinking. His sensorium is clear with his medications. He is hoping to return to work. He is concerned that he might lose his health insurance. We would like to thank you for letting us participate in his care. We hope he continues to improve. <ELECTRONICALLY SIGNED> By: Nina Alford MD 01/12/20 1540 [id number]. Bishnu Alford MD /nt
== END ==
LOC: M.PC 04:40
PROVIDERS: ATTEND Anesthesiology Pain Medicine
DX: M54.12 Radiculopathy, cervical region (principal); M96.1 Postlaminectomy syndrome, not elsewhere classified; G89.29 Other chronic pain; B18.2 Chronic viral hepatitis C; F11.20 Opioid dependence, uncomplicated; Z79.899 Other long term (current) drug therapy

== ENCOUNTER → 2020-03-27 | Outpatient (CLI) | payer OTHER ==
--- NOTE | ~2020-03-27 | PAINCON ---
[address] [address] PAIN MANAGEMENT CONSULTATION Name: CORINEMELA Master [facility] [id number] Admission: 03/27/20 Attend Phys: Nina Alford MD Discharge: Date of : 56 Report #: [id number] THIS REPORT FOR: //name// cc: Soraya Courtney MD, Jennifer MD ~ THIS REPORT FOR: //name// CC: Soraya Alford DATE OF SERVICE: 03/27/2020 CHIEF COMPLAINT: Here for medication renewal. HISTORY: The patient is a 59-year-old gentleman who has been followed in the pain clinic. As you may recall, he has chronic pain involving his neck, shoulders and back. This has been ongoing for a number of years. He has been furloughed because of the COVID-19 pandemic. He was recently contacted by his [employer] and told that his services would no longer be needed. 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 He feels that he has been treated unfairly. He has returned today for renewal of his medications. He finds that his medications are helpful. He rates his pain as a 3/10 at this juncture. He would like to continue with the oxycodone, amitriptyline and methocarbamol. Notes that activity can exacerbate his discomfort. Cold weather is problematic. Does finds the medications as well as use of heat can be helpful. ALLERGIES: No known drug allergies. CURRENT MEDICATIONS: Methocarbamol 500 mg t.i.d., MiraLax 17 grams, Ambien 5 mg, oxycodone 10 mg/IR every 4-6 hours, Epclusa Oral daily, Tylenol 600 mg p.r.n., amitriptyline 25 mg at h.s. 2 tablets. PAIN CLINIC ASSESSMENT AND PQRS: 1. The patient is not being treated for osteoarthritis or rheumatoid arthritis. 2. Height 5 feet 9 inches, weight 167 pounds, BMI is 24. 3. Vital signs: Blood pressure is 139/75, heart rate 62, respiratory rate 16, room air saturation 99%, temperature 97.8. 4. Pain intensity 09/12. 5. Fall history: The patient has not fallen in the last 3 months. 6. Blood thinner. The patient is not on a blood thinning medication. 7. Hypertension. The patient is not being treated for hypertension. 8. Opioids greater than 6 weeks. The patient receives medication from the pain clinic. 9. Risk assessment tool, low for opioid use. 10. Functional assessment tool, reviewed. 11. Recreational drug [place] [address] PAIN MANAGEMENT CONSULTATION Name: MELA POOL Room: [facility]#: [id number] Admission: 03/27/20 Attend Phys: Nina Alford MD Discharge: Date of : 56 Report #: [id number] 12. Tobacco: The patient denies. PHYSICAL EXAMINATION: GENERAL: The patient is a well-developed, well-nourished white male. Appears his stated age. He is alert and oriented x 3. His affect is appropriate. He does feel somewhat disappointed that he was fired from his job. Speech fluent. HEENT: Normocephalic, atraumatic. Extraocular eye muscles intact. Sclerae nonicteric. Mucous membranes are moist. The patient is wearing a facial covering. NECK: Without adenopathy or JVD. The patient does have some increased pain with increasing range of motion in his neck. Also, complains of some pain that radiates down into his shoulders. HEART: Regular rate. ABDOMEN: Nontender. LUNGS: Clear. EXTREMITIES: Upper extremity muscle strength judged to be 5-/5 for the major muscle groups in the upper extremity. Lower extremity muscle strength 5/5 for the major muscle groups in the lower extremity. The patient without significant scoliosis, kyphosis or lordosis. IMPRESSION: 1. Cervical radiculopathy, status post fusion C3 through T1. 2. Status post bowel obstruction surgery with lysis of adhesions. 3. Failed cervical fusion of the spine. 4. Peripheral neuropathy. 5. Chronic intractable pain. 6. Complex medical management of pain using opioids. 7. Hepatitis C. The patient has been evaluated for treatment. 8. The patient is disappointed that his job has been terminated. RECOMMENDATIONS: We discussed treatment options with the patient. Risks and benefits of opioid medications were again discussed. He finds that the medications are helpful. He has not had any complications with their use. A script for his medications of oxycodone 10 mg one p.o. q. 4-6 hours has been rewritten. The patient also find amitriptyline helpful and a script for this medication two 25 mg tablets at night have been written. The patient will also use a muscle relaxant, methocarbamol 3 times daily. He is able to think clearly with these medications. He does not have any problems with their use. He is aware that opioid medications can become less effective as time goes on. He is aware that certain patients have become addicted and some have as a result of overdosing. He is ready to move on to the next stage of his life. He is [address] [address] PAIN MANAGEMENT CONSULTATION Name: MELA POOL Room: [facility] ZENIA Greene#: [id number] Admission: 03/27/20 Attend Phys: Nina Alford MD Discharge: Date of : 56 Report #: [id number] still disappointed that rather than tell him [id number], they simply called him on the phone and told him he was no longer needed. By: [id number]. Bishnu Alford MD /nt
== END ==
LOC: M.PC 07:51
PROVIDERS: ATTEND Anesthesiology Pain Medicine
DX: M54.12 Radiculopathy, cervical region (principal); G89.29 Other chronic pain; M96.1 Postlaminectomy syndrome, not elsewhere classified; G62.9 Polyneuropathy, unspecified; F11.20 Opioid dependence, uncomplicated; B18.2 Chronic viral hepatitis C; K91.30 Postprocedural intestinal obstruction, unspecified as to partial versus complete; Z79.899 Other long term (current) drug therapy

== ENCOUNTER → 2020-06-19 | Outpatient (CLI) | payer OTHER | LOC: M.PC 07:58 | PROVIDERS: ATTEND Anesthesiology Pain Medicine | DX: M54.12 Radiculopathy, cervical region (principal); G89.29 Other chronic pain; F11.20 Opioid dependence, uncomplicated; B18.2 Chronic viral hepatitis C; M43.23 Fusion of spine, cervicothoracic region; G62.9 Polyneuropathy, unspecified; Z87.19 Personal history of other diseases of the digestive system ==

== ENCOUNTER → 2020-09-11 | Outpatient (CLI) | payer OTHER | LOC: M.PC 07:44 | PROVIDERS: ATTEND Anesthesiology Pain Medicine | DX: M54.12 Radiculopathy, cervical region (principal); G62.9 Polyneuropathy, unspecified; G89.29 Other chronic pain; F11.20 Opioid dependence, uncomplicated; M43.22 Fusion of spine, cervical region; B18.2 Chronic viral hepatitis C; M79.603 Pain in arm, unspecified; Z88.8 Allergy status to other drugs, medicaments and biological substances; Z79.899 Other long term (current) drug therapy ==

== ENCOUNTER → 2020-12-04 | Outpatient (CLI) | payer OTHER | LOC: M.PC 07:34 | PROVIDERS: ATTEND Anesthesiology Pain Medicine | DX: M54.12 Radiculopathy, cervical region (principal); G62.9 Polyneuropathy, unspecified; G89.4 Chronic pain syndrome; Z79.891 Long term (current) use of opiate analgesic; Z79.899 Other long term (current) drug therapy ==

== ENCOUNTER → 2021-02-26 | Outpatient (CLI) | payer OTHER | LOC: M.PC 08:00 | PROVIDERS: ATTEND Anesthesiology Pain Medicine | DX: M54.12 Radiculopathy, cervical region (principal); G62.9 Polyneuropathy, unspecified; G89.29 Other chronic pain; Z79.891 Long term (current) use of opiate analgesic; Z98.1 Arthrodesis status ==

== ENCOUNTER → 2021-05-21 | Outpatient (CLI) | payer OTHER ==
[~2021-05-21] MED LIST changes: +TIZANIDINE HCL4 M1 PO
== END ==
LOC: M.PC 07:38
PROVIDERS: ATTEND Anesthesiology Pain Medicine
DX: M54.12 Radiculopathy, cervical region (principal); G62.9 Polyneuropathy, unspecified; G89.29 Other chronic pain; B19.20 Unspecified viral hepatitis C without hepatic coma; M54.2 Cervicalgia; M79.603 Pain in arm, unspecified; Z79.899 Other long term (current) drug therapy; Z98.890 Other specified postprocedural states

== ENCOUNTER → 2021-08-13 | Outpatient (CLI) | payer OTHER | LOC: M.PC 07:43 | PROVIDERS: ATTEND Anesthesiology Pain Medicine | DX: M54.16 Radiculopathy, lumbar region (principal); M43.22 Fusion of spine, cervical region; G89.29 Other chronic pain; G62.9 Polyneuropathy, unspecified; Z79.899 Other long term (current) drug therapy ==